=== PATIENT | male | born 1975 | race Caucasian/White ===

== ENCOUNTER 2018-11-30 14:51 | Emergency (ER) | payer OTHER ==
[2018-11-30 15:00] VITALS: BP 144/100
--- NOTE | 2018-11-30 15:16 | ED Physician Documentation ---
History of Present Illness - Stated complaint Stated Complaint: TOOTH PX - Chief complaint Chief Complaint: Heent - History obtained from History obtained from: Patient - History of Present Illness Timing: How many weeks ago (Several weeks) Pain level max: 8 Pain level now: 6 - Additonal information Additional information: 43-year-old male with left lower molar pain. States that he cracked this tooth several years ago and has been worsening over the past several days. Unable to see a dentist. He states that he called [facility] and they told him to come to the emergency department as we may have a dentist that could come in. No fevers. No facial swelling. Worse with eating and drinking. Nothing makes it better Review of Systems Constitutional: denies: Fever, Chills GI: denies: Vomiting Skin: denies: Rash Musculoskeletal: denies: Neck pain, Back pain PD PAST MEDICAL HISTORY - Past Medical History Past Medical History: No - Past Surgical History Past Surgical History: No - Present Medications Home Medications: Ambulatory Orders Medication Instructions Recorded Confirmed Hydrocodone/Acetaminophen 1 - 2 each PO Q6H PRN #14 tablet 11/30/18 [Hydrocodon-Acetaminophen 5-325] Penicillin V Potassium 500 mg PO Q6HR #40 tablet 11/30/18 - Allergies Allergies/Adverse Reactions: Allergies Allergy/AdvReac Type Severity Reaction Status Date / Time No Known Drug Allergies Allergy Verified 11/30/18 14:58 - Social History Does the pt smoke?: No Smoking Status: Never smoker PD ED PE NORMAL - Vitals Vital signs reviewed: Yes - General General: Alert and oriented X 3, No acute distress - HEENT HEENT: Moist mucous membranes, Other (Left lower molar severe decay. No gingival swelling or abscess. No sublingual swelling. No facial swelling.) - Neck Neck: Supple, no meningeal sign - Cardiac Cardiac: RRR - Respiratory Respiratory: No respiratory distress, Clear bilaterally - Derm Derm: Warm and dry - Neuro Neuro: Alert and oriented X 3 Results - Vitals Vitals: Vital Signs - 24 hr 11/30/18 14:55 Temperature 37.0 C Heart Rate 99 Respiratory 16 Rate Blood Pressure 144/100 H O2 Saturation 99 Oxygen O2 Source Room air PD MEDICAL DECISION MAKING - ED course Complexity details: considered differential, d/w patient ED course: Cavit was placed over the cavity. Will place on antibiotics and pain medication for home. Encourage close follow-up with dentistry. No abscess. No facial swelling. No cellulitis. Patient counseled regarding signs and symptoms for which I believe and urgent re-evaluation would be necessary. Patient with good understanding of and agreement to plan and is comfortable going home at this time This document was made in part using voice recognition software. While efforts are made to proofread this document, sound alike and grammatical errors may occur. Departure - Departure Disposition: 01 Home, Self Care Clinical Impression: Pain due to dental caries Condition: Good Instructions: ED Tooth Pain Follow-Up: MUNA CHILDS DDS [Physician No Access] - AUGUSTIN GOMEZ [Physician No Access] - Augustin Godinez DDS [Physician No Access] - See Siu DDS [Physician No Access] - Prescriptions: Penicillin V Potassium 500 mg PO Q6HR #40 tablet Hydrocodone/Acetaminophen [Hydrocodon-Acetaminophen 5-325] 1 - 2 each PO Q6H PRN #14 tablet PRN Reason: pain Comments: Follow-up with your dentist within 1 week for repeat evaluation. Return if you worsen. Take all antibiotics until gone. Do not drink alcohol or drive while on narcotic pain medicine. Note that many narcotic pain relievers also contain tylenol/acetaminophen. Please ensure that your total dose of acetaminophen from all sources does not exceed 3 grams (3000mg) per day. You may constipated on this medication, take a stool softener such as "Colace" twice a day while you are on it. Also recommend a [id number] laxative such as senna or MiraLAX any day that you do not have a bowel movement. If you received narcotic pain medication in the emergency department, do not drive or operate machinery for the next 24 hours. Discharge Date/Time: 11/30/18 15:29
== END 2018-11-30 15:29 | disposition home or self-care (01) ==
LOC: ED 14:51
DX: K02.9 Dental caries, unspecified (principal)
CPT/HCPCS: 99282; 99283

== ENCOUNTER 2022-01-24 11:53 | Emergency (ER) | payer MEDICAID, OTHER ==
--- NOTE | 2022-01-24 13:02 | XRAY Report ---
PROCEDURE: Ribs w/PA Chest RT INDICATIONS: Fall, right rib pain TECHNIQUE: 3 views of the right ribs were acquired, along with a single view chest. COMPARISON: None. FINDINGS: Surgical changes and devices: None. Bones and chest wall: No fractures or dislocations. No suspicious bony lesions. Overlying soft tis sues appear unremarkable. Lungs and pleura: No pleural effusions or pneumothorax. Lungs appear clear. Mediastinum: Mediastinal contours appear normal. Heart size is normal. IMPRESSION: Nondisplaced right anterolateral 10th rib fracture. Reviewed by: Tyree Balbuena MD on 01/24/2022 1:01 PM PDT Approved by: Tyree Balbuena MD on 01/24/2022 1:01 PM PDT Station ID: [id number]
--- NOTE | 2022-01-24 14:38 | ED Physician Documentation ---
History of Present Illness - Stated complaint Stated Complaint: BACK PX FR FALLING - Chief complaint Chief Complaint: Trauma Ch/Bk - History obtained from History obtained from: Patient - Additonal information Additional information: PT c/o R posterior rib cage [place] hitting that part of his back. No SOB. It hurts to take a deep breath. No other injuries or complaints. Review of Systems Ten Systems: 10 systems reviewed and negative Constitutional: reports: Reviewed and negative Eyes: reports: Reviewed and negative Ears: reports: Reviewed and negative Nose: reports: Reviewed and negative Throat: reports: Reviewed and negative Cardiac: reports: Reviewed and negative Respiratory: reports: Reviewed and negative GI: reports: Reviewed and negative : reports: Reviewed and negative Skin: reports: Reviewed and negative Musculoskeletal: reports: Back pain Neurologic: reports: Reviewed and negative Psychiatric: reports: Reviewed and negative Endocrine: reports: Reviewed and negative Immunocompromised: reports: Reviewed and negative PD PAST MEDICAL HISTORY - Past Surgical History Past Surgical History: No - Present Medications Home Medications: Ambulatory Orders Medication Instructions Recorded Confirmed Hydrocodone/Acetaminophen 1 - 2 each PO Q6H PRN #14 tablet 11/30/18 [Hydrocodon-Acetaminophen 5-325] Penicillin V Potassium 500 mg PO Q6HR #40 tablet 11/30/18 HYDROcod/ACETAM 5/325 [[place] 5/325] 1 - 2 tablet PO Q6H PRN #14 tablet 01/24/22 - Allergies Allergies/Adverse Reactions: Allergies Allergy/AdvReac Type Severity Reaction Status Date / Time No Known Drug Allergies Allergy Verified 01/24/22 12:12 - Social History Does the pt smoke?: No Smoking Status: Never smoker PD ED PE NORMAL - Vitals Vital signs reviewed: Yes - General General: Alert and oriented X 3, No acute distress, Well developed/nourished - HEENT HEENT: Atraumatic, PERRL, EOMI, Moist mucous membranes - Neck Neck: Supple, no meningeal sign, No bony TTP - Cardiac Cardiac: RRR, No murmur - Respiratory Respiratory: No respiratory distress, Clear bilaterally - Abdomen Abdomen: Normal bowel sounds, Soft, Non tender, Non distended - Back Back: No CVA TTP, No spinal TTP, Other (TTP without step-off or crepitus over R inferior posterior rib cage.) - Derm Derm: Warm and dry - Extremities Extremities: No deformity - Neuro Neuro: Alert and oriented X 3 - Psych Psych: Normal mood, Normal affect Results - Vitals Vitals: Oxygen O2 Source Room air - Rads (name of study) R ribs/chest XR Radiology: Final report received, EMP read indepedently, See rad report (ND 10th rib fx) PD MEDICAL DECISION MAKING - ED course Complexity details: reviewed results, re-evaluated patient, considered differential, d/w patient ED course: I d/w pt that he has a rib fx, but no underlying lung injury. We have discussed symptomatic management at home, and the usual indications for return. Departure - Departure Disposition: Home, Self Care Clinical Impression: Fracture of rib Qualifiers: Encounter type: initial encounter Rib fracture type: single rib Fracture type: closed Laterality: right Qualified Code(s): S22.31XA - Fracture of one rib, right side, initial encounter for closed fracture Condition: Stable Instructions: ED Fx Rib Prescriptions: HYDROcod/ACETAM 5/325 [[place] 5/325] 1 - 2 tablet PO Q6H PRN #14 tablet PRN Reason: Pain Comments: Your x-ray series today shows a nondisplaced fracture of your right 10th rib. There is no evidence of injury to your lung from this. Like any broken bone, this will take several weeks to heal. The pain will gradually improve as time goes on. In the meantime, you may take the pain medication prescribed, which has been electronically prescribed to [facility] pharmacy in [place] at your request. Please be sure to take regular deep breaths throughout the day to be sure your lungs are aerated and to decrease the likelihood of development of pneumonia. If your workplace can provide light duty, you may continue to work under these conditions; however, you should not perform any heavy lifting or weighted rotational movements until your pain is improved. Forms: Activity restrictions Discharge Date/Time: 01/24/22 15:05
[2022-01-24 15:06] VITALS: BP 144/82
== END 2022-01-24 15:05 | disposition home or self-care (01) ==
LOC: ED 11:53
DX: S22.31XA Fracture of one rib, right side, initial encounter for closed fracture (principal); W10.8XXA Fall (on) (from) other stairs and steps, initial encounter; Y93.89 Activity, other specified; Y92.814 Boat as the place of occurrence of the external cause
CPT/HCPCS: 99283; 99284